=== PATIENT | female | born 1975 | race Caucasian/White ===

== ENCOUNTER 2020-12-14 16:19 | Emergency (ER) | payer BC ==
[~2020-12-14] VITALS: Ht 175.3 cm; Wt 114.4 kg
[2020-12-14] MEDS ORDERED: ADDERALL 10 MG10 MG (16:48)
[2020-12-14] MEDS ORDERED: ABILIFY5 MG PO (16:48)
[2020-12-14] MEDS ORDERED: PRISTIQ ER50 MG PO (16:48)
[2020-12-14] MEDS ORDERED: KETOROLAC TROMETHAMINE 30 MG/ML VIAL IV STA (17:02)
[2020-12-14] MEDS ORDERED: CEFTRIAXONE SOD 1 GM/50 ML BAG IV ONE (17:15)
[2020-12-14] MEDS ORDERED: CEFTRIAXONE SOD 1 GM in SODIUM CHLORIDE 0.9% 50ML 50 ML IV ONE (17:15)
[2020-12-14] MEDS ORDERED: IOPAMIDOL 370 MG/ML 200 ML INFUS..BTL INJ ONE (17:18)
[2020-12-14] MEDS ORDERED: SODIUM CHLORIDE 0.9% 50ML 50 ML ONE (17:19)
[2020-12-14] MEDS ORDERED: KETOROLAC TROMETHAMINE 30 MG/ML VIAL ONE (17:20)
[2020-12-14] MEDS ORDERED: CEFTRIAXONE SOD 1 GM 50 ML IV ONE (17:20)
[2020-12-14] MEDS ORDERED: SODIUM CHLORIDE 0.9% 1000ML 1,000 ML ONE (17:29)
[2020-12-14] MEDS ORDERED: SODIUM CHLORIDE 0.9% 1000ML 1,000 ML IV SCH (17:30)
[2020-12-14] MEDS ORDERED: CIPROFLOXACIN 500 MG TAB PO SCH (19:15)
[2020-12-14] MEDS ORDERED: CIPROFLOXACIN 500 MG TAB ONE (19:19)
[2020-12-14] MEDS ORDERED: CIPRO500 MG PO (19:19)
[2020-12-14] MEDS ORDERED: ULTRAM50 MG PO (19:20)
[2020-12-14] MEDS ORDERED: CIPROFLOXACIN 500 MG TAB PO ONE (19:30)
[2020-12-14] MEDS ORDERED: CORTISPORIN-TC10 M1 LEFT EAR (19:31)
== END 2020-12-14 19:58 | disposition home or self-care (01) ==
LOC: FSED 17:03
DX: H60.92 Unspecified otitis externa, left ear (principal); R68.84 Jaw pain; F32.9 Major depressive disorder, single episode, unspecified; F17.210 Nicotine dependence, cigarettes, uncomplicated
CPT/HCPCS: 70487; 80048; 81003; 81025; 85025; 96374; 99284; J0696; J1885; J7030; Q9967